=== PATIENT | female | born 1935 | race Asian ===

== ENCOUNTER 2017-01-10 17:08 | Inpatient (IN) | payer OTHER, MEDICAID ==
[~2017-01-10] VITALS: Ht 157.5 cm; Wt 72.6 kg
[2017-01-10 17:53] LABS: UA SPECIFIC GRAVITY >=1.030 (1.005-1.035); microscopic required? YES; urine erythrocyte 3+ (NEGATIVE)
[2017-01-10 17:54] LABS: BASOPHIL % 0.1 % (0-2); RED CELL DISTRIBUTION WIDTH 12.9 % (11.5-14.5)
[2017-01-10 17:55] LABS: PLATELET COUNT 122 x10^3mcL (130-400)
[2017-01-10 18:01] LABS: CALCIUM 8.3 mg/dL (8.5-10.1); CARBON DIOXIDE 27.6 mmol/L (21-32); CHLORIDE SERUM 104 mmol/L (98-107); CREATININE SERUM 0.9 mg/dL (0.6-1.0); GLUCOSE SERUM 156 mg/dL (74-106); POTASSIUM SERUM 3.3 mmol/L (3.5-5.1); SODIUM SERUM 139 mmol/L (136-145)
[2017-01-10 18:03] LABS: AMPHETAMINE QUAL UR NONE DETECTED (NEG <=1000)
[2017-01-10 18:05] LABS: ALBUMIN 3.4 g/dL (3.4-5.0); ALKALINE PHOSPHATASE 80 U/L (46-116); ALT/SGPT 206 U/L (14-59); AST/SGOT 107 U/L (15-37); BILIRUBIN TOTAL 9.5 mg/dL (0.20-1.00); LIPASE 524 IU/L (73-393); TOTAL PROTEIN, SERUM 5.8 g/dL (6.4-8.2)
[2017-01-10 19:51] LABS: MAGNESIUM 2.1 mg/dL (1.8-2.4); PHOSPHOROUS 2.1 mg/dL (2.5-4.9)
[2017-01-10 19:57] LABS: T3 TOTAL 0.68 ng/mL
[2017-01-10] MEDS ORDERED: APAP500 MG PO ×2 (19:58→20:01)
[2017-01-10] MEDS ORDERED: MOM PO (19:58)
[2017-01-10] MEDS ORDERED: MP PO (19:59)
[2017-01-10] MEDS ORDERED: ALBUTEROL0.63 MG/3 NEB (19:59)
[2017-01-10] MEDS ORDERED: CATAPRES0.1 MG PO (19:59)
[2017-01-10] MEDS ORDERED: COLACE100 MG PO (20:00)
[2017-01-10] MEDS ORDERED: TRAZODONE50 M1 PO (20:00)
[2017-01-10] MEDS ORDERED: ARICEPT5 MG PO (20:00)
[2017-01-10 20:01] LABS: FREE T4 1.23 ng/dL (0.76-1.46); FREE THYROXINE INDEX 3.5 ug/dL (1.4-4.5); T4(THYROXINE) 9.1 ug/dL (4.7-13.3)
[2017-01-10] MEDS ORDERED: ADV250/50 INH (20:01)
[2017-01-10] MEDS ORDERED: LEXAPRO5 M1 PO (20:01)
[2017-01-10] MEDS ORDERED: MAC100 PO (20:01)
[2017-01-10 20:02] LABS: CHOLESTEROL/HDL RATIO 1.7
[2017-01-10 20:26] VITALS: BP 155/77
[2017-01-10 22:46] VITALS: BP 155/77
[2017-01-11 06:01] VITALS: BP 148/80
[2017-01-11 06:28] LABS: BASOPHIL % 0.1 % (0-2); RED CELL DISTRIBUTION WIDTH 12.8 % (11.5-14.5)
[2017-01-11 06:35] LABS: CALCIUM 7.5 mg/dL (8.5-10.1); CARBON DIOXIDE 24.6 mmol/L (21-32); CHLORIDE SERUM 111 mmol/L (98-107); CREATININE SERUM 0.8 mg/dL (0.6-1.0); GLUCOSE SERUM 111 mg/dL (74-106); PHOSPHOROUS 2.2 mg/dL (2.5-4.9); POTASSIUM SERUM 3.9 mmol/L (3.5-5.1); SODIUM SERUM 145 mmol/L (136-145)
[2017-01-11 07:22] LABS: PLATELET COUNT 93 x10^3mcL (130-400)
[2017-01-11 08:30] LABS: BILIRUBIN DIRECT 3.51 mg/dL (0.0-0.2); BILIRUBIN TOTAL 6.3 mg/dL (0.20-1.00)
[2017-01-11 08:49] LABS: ALBUMIN 2.8 g/dL (3.4-5.0); TOTAL PROTEIN, SERUM 4.8 g/dL (6.4-8.2)
[2017-01-11 09:13] VITALS: BP 149/60
[2017-01-11 14:00] VITALS: BP 115/63
[2017-01-11 17:47] VITALS: BP 151/78
[2017-01-11 21:50] VITALS: BP 134/67
[2017-01-12 05:26] VITALS: BP 144/73
[2017-01-12 07:18] LABS: BASOPHIL % 0.2 % (0-2)
[2017-01-12 07:21] LABS: PLATELET COUNT 92 x10^3mcL (130-400)
[2017-01-12 07:34] LABS: CALCIUM 7.9 mg/dL (8.5-10.1); CARBON DIOXIDE 24.4 mmol/L (21-32); CHLORIDE SERUM 107 mmol/L (98-107); CREATININE SERUM 0.8 mg/dL (0.6-1.0); GLUCOSE SERUM 134 mg/dL (74-106); PHOSPHOROUS 1.7 mg/dL (2.5-4.9); POTASSIUM SERUM 3.1 mmol/L (3.5-5.1); SODIUM SERUM 140 mmol/L (136-145)
[2017-01-12 09:21] VITALS: BP 133/79
[2017-01-12 16:05] VITALS: BP 128/81
[2017-01-12 18:17] VITALS: BP 142/77
[2017-01-12 22:03] VITALS: BP 133/70
[2017-01-13 05:40] VITALS: BP 165/84
[2017-01-13 06:19] VITALS: BP 165/84
[2017-01-13 06:31] LABS: BASOPHIL % 0.2 % (0-2); RED CELL DISTRIBUTION WIDTH 12.6 % (11.5-14.5)
[2017-01-13 06:39] LABS: PLATELET COUNT 102 x10^3mcL (130-400)
[2017-01-13 06:49] LABS: ALBUMIN 2.5 g/dL (3.4-5.0); ALKALINE PHOSPHATASE 53 U/L (46-116); ALT/SGPT 84 U/L (14-59); AST/SGOT 22 U/L (15-37); BILIRUBIN TOTAL 3.1 mg/dL (0.20-1.00); CARBON DIOXIDE 26.6 mmol/L (21-32); CHLORIDE SERUM 104 mmol/L (98-107); CREATININE SERUM 0.8 mg/dL (0.6-1.0); GLUCOSE SERUM 116 mg/dL (74-106); PHOSPHOROUS 2.6 mg/dL (2.5-4.9); SODIUM SERUM 140 mmol/L (136-145); TOTAL PROTEIN, SERUM 5.4 g/dL (6.4-8.2)
[2017-01-13 09:20] VITALS: BP 134/65
[2017-01-13 10:51] LABS: IRON 47 ug/dL (50-170)
[2017-01-13 10:57] LABS: TOTAL IRON BINDING CAPACITY 195 ug/dL (250-450)
[2017-01-13] MEDS ORDERED: LEVAQUIN750 MG PO (14:22)
[2017-01-13] MEDS ORDERED: FLA500 PO (14:23)
[2017-01-13] MEDS ORDERED: FLORASTOR1 CAP PO (14:23)
[2017-01-13] MEDS ORDERED: HYDROCHLOROTHIA25 MG PO (15:12)
[2017-01-13] MEDS ORDERED: LOSARTAN POTAS100 M1 PO (15:13)
[2017-01-13] MEDS ORDERED: BYSTOLIC10 M1 PO (15:15)
[2017-01-13 17:42] VITALS: BP 134/65
[2017-01-13 17:45] VITALS: BP 142/82
== END 2017-01-13 20:10 | disposition home or self-care (01) | DRG 917 ==
LOC: ED 17:08 → MU 18:27 → DU 18:27 → MU 01-12 09:02
PROVIDERS: Emergency Medicine; Internal Medicine Gastroenterology; ADMIT Family Medicine
DX: T60.3X2A Toxic effect of herbicides and fungicides, intentional self-harm, initial encounter (principal); N17.0 Acute kidney failure with tubular necrosis; I50.43 Acute on chronic combined systolic (congestive) and diastolic (congestive) heart failure; E43 Unspecified severe protein-calorie malnutrition; N39.0 Urinary tract infection, site not specified; K80.10 Calculus of gallbladder with chronic cholecystitis without obstruction; R10.9 Unspecified abdominal pain; R11.2 Nausea with vomiting, unspecified; N20.0 Calculus of kidney; R31.9 Hematuria, unspecified; I48.91 Unspecified atrial fibrillation; F43.23 Adjustment disorder with mixed anxiety and depressed mood; K76.89 Other specified diseases of liver; I10 Essential (primary) hypertension; E87.6 Hypokalemia; E83.39 Other disorders of phosphorus metabolism; D69.6 Thrombocytopenia, unspecified; D53.9 Nutritional anemia, unspecified; Z68.29 Body mass index [BMI] 29.0-29.9, adult; Z85.030 Personal history of malignant carcinoid tumor of large intestine; Y92.009 Unspecified place in unspecified non-institutional (private) residence as the place of occurrence of the external cause
CPT/HCPCS: 78226; 83880; 84439; A9537; G0480; J2543; J3480; J3490; J7030; J7040; J7620; J7626; Q0092